=== PATIENT | female | born 1945 | race Caucasian/White ===

== ENCOUNTER 2022-04-23 15:42 | Observation (INO) ==
[2022-04-23] MEDS ORDERED: Ondansetron 4 mg VIAL 2 MG/ML 2 ml VIAL IV ONE (16:09)
[2022-04-23] MEDS ORDERED: Morphine 4 MG/ML VIAL (1 ml) IV ONE (16:09)
[2022-04-23 20:17] LABS: ABS Basophils 0.1 10^3/ul (0-0.2); ABS Lymphocytes 1.4 10^3/ul (1.0-4.8); ABS Monocytes 0.6 10^3/ul (0-0.8); ABS Neutrophils 7.4 10^3/ul (1.5-7.7); Eosinophil % 0.2 %; Hematocrit 39 % (35-47); Hemoglobin 12.9 g/dL (12.0-16.0); Mean Corpuscular HGB Conc 33 g/dL (31-36); Mean Corpuscular Hemoglobin 31 pg (27-31); Mean Corpuscular Volume 93 fL (80-97); Mean Platelet Volume 7.4 fL (7.4-10.4); Platelet Count 279 10^3/uL (150-450); Red Blood Count 4.15 10^6 /uL (3.70-4.87); Red Cell Distribution Width 13 % (10-15); White Blood Count 9.5 10^3/uL (3.5-10.8)
[2022-04-23] MEDS ORDERED: HYDROcodone/ACETAMIN 5/325 mg TAB PO PRN (20:25)
[2022-04-23 20:27] LABS: INR 0.95 (0.89-1.11)
[2022-04-23] MEDS ORDERED: Morphine 2 MG/ML SYRINGE IV PRN (20:35)
[2022-04-23 20:58] LABS: Albumin 4.5 g/dL (3.2-5.2); Albumin/Globulin Ratio 1.7 (1-3); Calcium 10.1 mg/dL (8.6-10.3); Globulin 2.6 g/dL (2-4); Potassium 3.9 mmol/L (3.5-5.0); Total Bilirubin 0.7 mg/dL (0.2-1.0); Total Protein 7.1 g/dL (6.4-8.9); eGFR CKD-EPI 79.4 (>60)
[2022-04-23] MEDS ORDERED: Ondansetron 4 mg VIAL 2 MG/ML 2 ml VIAL IV PRN (22:01)
[2022-04-23] MEDS: Enoxaparin 40 MG/0.4 ML SYR SUBCUT SCH (22:57)
[2022-04-24] MEDS ORDERED: NF: Linaclotide 145 mg CAP (NF) PO SCH (09:00)
[2022-04-24] MEDS: Enoxaparin 40 MG/0.4 ML SYR SUBCUT SCH (20:26)
[2022-04-24] MEDS: LINACLOTIDE 145 MCG PO SCH (21:02)
[2022-04-25] MEDS: Enoxaparin 40 MG/0.4 ML SYR SUBCUT SCH (21:53)
[2022-04-25] MEDS: LINACLOTIDE 145 MCG PO SCH (21:55)
[2022-04-26 08:35] VITALS: BP 122/83
== END 2022-04-26 09:58 | disposition home or self-care (01) ==
LOC: ED 15:42 → SUATTDRO 20:21 → INTOOBSV 20:21 → EDHOLD 20:21 → SSU 04-24 04:03
PROVIDERS: ADMIT Internal Medicine; ATTEND Internal Medicine